=== PATIENT | female | born 1995 | race Caucasian/White ===

== ENCOUNTER 2020-04-27 13:24 | Inpatient (IN) ==
--- NOTE | 2020-04-27 14:24 | History & Physical Report ---
Date of Service April 27, 2020 Assessment & Plan Admission and Anticipated Discharge Date Admission Date: 24 yo here for ctx SCE: 6-7cm dilated, 100% effaced, 0 station PNL: Rh pos, RI, GBS neg, COVID neg Admit, labs, start IV Patient desires epidural Anticipate History of Present Illness Chief Complaint: onset of contractions this morning Primary Care Provider: Anthony Medina MD DOMO Chanel is a 24 y/o female currently at 40 1/7 WGA with an KISHAN 04/26/20 as determined by LMP who is here for labor check. Her was complicated by . [+] contractions ~5-10 minutes apart, onset at 1000 this morning; + movement; - fluid loss; - bloody show Had regular appointments with OB. Blood type: O+ Antibody screen: negative Rubella: immune (10/11/2019) VDRL/RPR: nonreactive (10/11/2019) Gonorrhea: negative (04/04/2020) Chlamydia: negative (04/04/2020) HIV: negative (10/11/2019) HbSAg: negative (10/11/2019) GBS: negative (04/04/2020) COVID-19 negative (04/11/2020) Other screens: CF: declined SMA: declined Allergies Allergy/AdvReac Type Severity Reaction Status Date / Time No Known Allergies Allergy Verified 04/25/20 11:29 Home Medications Home Medications Medication Instructions Recorded Confirmed Type prenat.vits,toni,dhd-iqqj-mkiam 1 tab PO DAILY 10/04/19 04/27/20 History Patient History Medical History Vaginal bleeding Varicella vaccination Surgical History History of oral surgery S/P tonsillectomy S/P wisdom tooth extraction Family History Grandmother (Maternal) Diabetes Mother Thyroid disease Aunt Breast cancer Spina bifida Grandfather (Maternal) Colorectal cancer Social History (Updated 10/04/19 @ 09:53 by Maine Quispe) Smoking Status: Current every day smoker Cigarettes Per Day: 1-2 cigarettes per day; Hx Alcohol Use: No Hx Substance Use: No Preferred Language: Peruvian Communication Ability: Effective Civil Engineering Draftsperson Required: No Beliefs That Will Affect Care: None marital status: Single marital status details: Tawanda Ortega (25) [phone] Current Living Situation: Parent Current Living Situation Comment: currently lives with parents current occupational status: employed Other Information That Helps Us Care for You: No Feels Safe at Home: Yes Safety Concerns: Feels Safe At This Time Assistive Devices: None Review of Systems ROS Denies fever or chills. Denies shortness of breath or cough. Denies chest pain. Denies breast pain. Denies dysuria or hematuria. Denies leg pain or leg swelling. Denies headache or changes in vision. Physical Exam Physical Exam: PE General: Alert, oriented. No acute distress. Cardiac: Regular rate and rhythm, no murmurs/rubs/gallops. Respiratory: Clear to auscultation bilaterally a/p, no wheezes/rales/rhonchi. No increased work of breathing. Symmetrical chest rise. No respiratory distress. Abdomen: Gravid. Vertex position. + heart tones. + palpable contractions. Pelvic: Dilation 6-7cm; Effacement 100%; Station [address] Lema External FHT and external uterine monitors used; Category I tracing; baseline 130, + FHT variability, toco q4-5 Lower Extremities: No lower extremity edema or swelling. No deep calf pain. Zay's negative bilaterally. Results & Data ([facility]) Vital Signs (Past 12 Hours) Vital Signs Temp Pulse Resp BP 04/27/20 13:36 36.8 C 106 H 20 107/69 04/27/20 13:30 106 H 107/69 Laboratory Results admission CBC pending Code Status & VTE Plan Code Status Full Code VTE Prophylaxis Plan VTE Prophylaxis will be ordered: No Supervising Physician Co-Signing Physician Notes Resident Physician Supervision Note: I was present with resident physician during the history and exam. I discussed the case with the resident and agree with the findings and plan as documented in the note. Any exceptions or clarifications are listed here: None Documented By: Marifer Lema, Resident Activity Tracking Resident Involvement: Resident Care Provided Care Provided: OB Delivery
[2020-04-27] MEDS ORDERED: OXYTOCIN 30 UNITS/500 ML BAG IV PRN (14:48)
[2020-04-27] MEDS: LACTATED RINGER'S 1,000 ML IV PRN ×2 (15:00→15:49)
[2020-04-27] MEDS ORDERED: ePHEDrine sulfate 50 MG/ML AMP ONE (15:11)
[2020-04-27] MEDS ORDERED: BUPIVACAINE 0.25% 30 ML VIAL ONE (15:11)
[2020-04-27] MEDS ORDERED: fentaNYL citrate 100 MCG/2 ML VIAL ONE (15:11)
[2020-04-27] MEDS ORDERED: fentaNYL 2MCG/ML ROPIVACAINE 1.25MG/ML 100 ML BAG EPI ONE (15:12)
[2020-04-27] MEDS ORDERED: NALOXONE HCL 1 MG in SODIUM CHLORIDE 0.9% 1000ML 1,000 ML IV PRN (15:16)
[2020-04-27] MEDS ORDERED: ONDANSETRON INJ 2 MG/ML 2 ML VIAL IV PRN (15:16)
[2020-04-27] MEDS ORDERED: PROMETHAZINE HCL 25 MG in SODIUM CHLORIDE 0.9% 50 ML IV PRN (15:16)
[2020-04-27] MEDS ORDERED: diphenhydrAMINE 50 MG/ML VIAL IV PRN (15:16)
[2020-04-27] MEDS ORDERED: ePHEDrine sulfate 50 MG/ML AMP IV PRN (15:16)
[2020-04-27] MEDS ORDERED: fentaNYL 2MCG/ML ROPIVACAINE 1.25MG/ML 100 ML BAG EPI PRN (15:16)
[2020-04-27] MEDS ORDERED: NALOXONE HCL 0.4 MG/1 ML VIAL/CARP IV PRN (15:16)
--- NOTE | 2020-04-27 15:17 | Anesthesiology Consultation ---
Date of Service April 27, 2020 Assessment & Plan ASA ASA3 Proposed Anesthesia Anesthesia Type: Labor Epidural Risk / Benefits Reviewed With: PT / POA / Parent / Guardian, Accepts Plan and Informed Consent Obtained History Height/Weight Height: 5 ft 5 in Weight: 73.482 kg Allergies Allergy/AdvReac Type Severity Reaction Status Date / Time No Known Allergies Allergy Verified 04/25/20 11:29 Medications Home Medications Medication Instructions Recorded Confirmed Last Taken prenat.vits,toni,pvc-udrr-eiusf 1 tab PO DAILY 10/04/19 04/27/20 04/26/20 Active Medications Generic Name Dose Route Start Last Admin Trade Name Freq PRN Reason Stop Dose Admin Lactated Ringer's 1,000 mls @ 125 mls/hr 04/27/20 14:48 04/27/20 15:50 Lr IV 04/29/20 14:47 125 mls/hr .Q8H PRN Infusion L&D Protocol Protocol Past Medical History Medical History Vaginal bleeding Varicella vaccination Exercise / Class Metabolic Activity II 4-5 Yardwork/Stairs/Walk up hill Past Family History Family History Grandmother (Maternal) Diabetes Mother Thyroid disease Aunt Breast cancer Spina bifida Grandfather (Maternal) Colorectal cancer Past Surgical History Surgical History History of oral surgery S/P tonsillectomy S/P wisdom tooth extraction Past Anesthesia History No Hx of Anesthesia Complications and No Family Hx of Anesthesia Complications History of PONV No Hx of PONV and No Hx of Motion Sickness Social History Smoking Status: Current every day smoker tobacco type: cigarettes Smoking cigarettes per day: 1-2 cigarettes per day Hx Alcohol Use: No Hx Substance Use: No Review of Systems denies fever/cough/ colds/ chest pain/ SOB/ SVETA Constitutional: no fever and no chills Respiratory: no cough and no dyspnea denies SVETA Cardiovascular: no chest pain and no dyspnea on exertion Physical Exam Vital Signs Last Vital Signs Temp 36.8 C 04/27/20 15:02 Pulse 81 04/27/20 16:00 Resp 20 04/27/20 15:02 BP 122/69 04/27/20 15:58 Pulse Ox 96 04/27/20 16:00 ENMT Mouth: + dentures; no TMJ abnormality and no dentition abnormality Thyromental Distance: > or= 3.5 Finger Breadths Mallampati Class: II Neck neck extension not limited Respiratory normal respiratory effort; no respiratory distress Auscultation: lungs clear to auscultation bilaterally Cardiovascular Rate/Rhythm: regular rate and regular rhythm Neurologic moves all extremities Psychiatric Orientation: alert and oriented x 3 Testing Laboratory Results 04/27/20 15:01
[2020-04-27 15:20] LABS: Hematocrit (blood only) 35.7 % (37-47); Hemoglobin 12.5 g/dL (12.0-16.0); Mean Corpuscular Hemoglobin 31.1 pg (25-34); Mean Corpuscular Volume 88.8 fL (80-100); Mean Platelet Volume 11.4 fL (7.4-10.4); Platelet Count 268 K/uL (130-400); RDW Coefficient of Variation 13.2 % (11.5-14.5); RDW Standard Deviation 42.7 fL (36.4-46.3); Red Blood Count 4.02 M/uL (4.2-5.4); White Blood Count 14.46 K/uL (4.8-10.8)
--- NOTE | 2020-04-27 19:25 | Labor Progress Brief Note ---
Date of Service April 27, 2020 Subjective Resting comfortably with epidural Assessment & Plan Admission and Anticipated Discharge Date Admission Date: April 27, 2020 24 y/o G1 at 40.1 wga, labor VSS Fetus cat 1 Labor - now s/p AROM Comfortable w/ epidural Augment PRN Physical Exam Genitourinary: Manual OB Exam: + cervical dilation 7 cm, + cervical effacement 90%, + station 0 and + amniotic fluid (AROM) bloody OB Exam Monitor Tracing: + external uterine monitor used (q2-4min) and + category I (130/mod/+accel/- decel) Results & Data ([facility]) Vital Signs (Past 12 Hours) Vital Signs Temp Pulse Resp BP Pulse Ox 04/27/20 19:20 89 97 04/27/20 19:15 66 99 04/27/20 19:11 97.9 F 75 18 108/61 04/27/20 19:10 70 98 04/27/20 19:05 82 98 04/27/20 19:00 86 99 04/27/20 18:57 95 H 115/74 04/27/20 18:55 69 97 04/27/20 18:50 74 99 04/27/20 18:45 84 97 04/27/20 18:41 74 104/61 04/27/20 18:40 91 H 99 04/27/20 18:35 62 97 04/27/20 18:30 62 98 04/27/20 18:26 61 18 106/60 04/27/20 18:25 66 98 04/27/20 18:21 81 88 L 04/27/20 18:20 76 93 04/27/20 18:15 69 99 04/27/20 18:12 88 122/71 04/27/20 18:10 75 100 04/27/20 18:05 70 100 04/27/20 18:00 76 18 98 04/27/20 17:55 68 98 04/27/20 17:50 74 97 04/27/20 17:45 70 98 04/27/20 17:40 84 18 94/54 L 100 04/27/20 17:39 97 H 92 04/27/20 17:35 86 99 04/27/20 17:33 90 117/78 94 04/27/20 17:30 72 97 04/27/20 17:28 66 114/69 09/24/20 17:25 78 97 20 17:23 64 111/76 20 17:20 71 98 20 17:17 64 116/73 20 17:15 67 97 20 17:12 77 18 110/70 20 17:10 74 98 04/27/20 17:08 82 129/82 04/27/20 17:05 73 100 04/27/20 17:02 85 117/79 04/27/20 17:00 90 100 20 16:57 103 H 18 118/91 04/27/20 16:55 82 99 04/27/20 16:53 82 125/93 04/27/20 16:50 91 H 100 04/27/20 16:49 79 92 04/27/20 16:47 70 18 115/74 04/27/20 16:45 90 98 04/27/20 16:42 76 116/76 04/27/20 16:40 81 100 04/27/20 16:37 70 115/73 04/27/20 16:35 68 98 04/27/20 16:32 88 18 104/76 04/27/20 16:30 93 H 97 04/27/20 16:27 90 111/77 04/27/20 16:25 87 98 04/27/20 16:22 78 110/73 20 16:20 83 98 04/27/20 16:19 95 H 138/72 20 16:15 87 96 04/27/20 16:14 78 94 04/27/20 16:10 97 H 96 04/27/20 16:07 76 20 103/66 94 04/27/20 16:05 91 H 97 04/27/20 16:00 81 96 20 15:58 104 H 20 122/69 20 15:55 98 H 95 20 15:53 106 H 18 118/77 20 15:50 92 H 98 20 15:46 92 H 18 129/77 20 15:45 88 97 20 15:44 94 H 128/87 04/27/20 15:41 104 H 18 125/76 20 15:40 91 H 99 04/27/20 15:39 85 18 119/77 04/27/20 15:37 88 18 122/73 04/27/20 15:35 78 100 04/27/20 15:34 99 H 18 118/69 89 L 04/27/20 15:32 88 20 114/69 04/27/20 15:30 91 H 20 119/71 100 04/27/20 15:27 88 90 04/27/20 15:25 87 100 04/27/20 15:22 87 92 04/27/20 15:20 85 100 04/27/20 15:15 77 100 04/27/20 15:10 97 H 100 04/27/20 15:05 107 H 99 04/27/20 15:02 98.2 F 90 20 107/68 04/27/20 13:36 98.2 F 106 H 20 107/69 04/27/20 13:30 106 H 107/69 Coding Level of Care Code None
--- NOTE | 2020-04-28 00:27 | Delivery Summary ---
Vaginal Delivery Summary Date of Service April 28, 2020 Vaginal Delivery Summary Vaginal Delivery Summary: Pre-delivery diagnoses: 24yo @ 40 2/7, spontaneous labor, smoker, +chlamydia (treated), LSIL Post-delivery diagnoses: same Procedure: spontaneous vaginal delivery Surgeon: Marifer Lema DO Complications: none Findings: Viable male . Apgars: 8/9 . Weight pending, please see nursery records Estimated blood loss: 300ml Description of delivery: The patient progressed to complete with epidural anesthesia. She then began to push. She spontaneously vaginally delivered a viable from the cephalic presentation. The head delivered in AKUA position. The anterior shoulder delivered, followed by the posterior shoulder, followed by the body. No nuchal cord. The baby was placed on mother's abdomen and a spontaneous cry was heard. Delayed cord clamping was employed, and the cord was doubly clamped and cut. Cord blood was obtained. The placenta was delivered spontaneously intact with a 3-vessel cord. The uterus and vagina were swept of clots and debris. IV pitocin was given. The uterus became firm. The cervix, vagina, and perineum were inspected and a right labial laceration was noted and repaired in a running locked stitch with 3-0 vicryl. Excellent hemostasis was observed. The mother and baby are recovering in stable and good condition in the room. Sponge, needle and instrument counts were correct x 2. Marifer Lema DO [facility] Vaginal Delivery Charge Vaginal Delivery Codes: 91167 global code for the antepartum, delivery, and post-
--- NOTE | 2020-04-28 04:54 | Obstetrical Progress Note ---
Date of Service April 28, 2020 Assessment & Plan (1) : S/p Day 1 - Feels well today. Eating well, voiding well, ambulating well. - Pain well-controlled with ibuprofen 600mg Q4H PRN. - Vital signs reviewed and WNL. - Hemoglobin reviewed. 12.5 pre- - Blood Type: O+, antibody negative, GBS negative, Rubella Immune, COVID-19 negative - Continue routine post- care: encourage ambulation, monitor and control pain with Motrin PRN, continue regular OB diet, monitor lochia - Encourage breast feeding. - After discharge, will have 6-wk follow-up with [facility] BUSINESS CONTINUITY DIRECTOR Admission and Anticipated Discharge Date Admission Date: April 27, 2020 Supervising Physician Co-Signing Physician Notes Resident Physician Supervision Note: I was present with Dr. Connolly during the history and exam. I discussed the case with the resident and agree with the findings and plan as documented in the note. Any exceptions or clarifications are listed here: PPD#1 doing well. Continue routine care. Documented By: Marifer Lema, DO Subjective HPI Kelly Chanel is a 24 y/o female who is PPD 1 spontaneous vaginal delivery at 40 2/7 weeks. She reports feeling well overall this morning. No abdominal cramping and 0/10 pain well managed on analgesics. Voiding well. Tolerating meals overnight without difficulty. Patient has been able to ambulate some. not passing gas and no bowel movement yet. Has persistent lochia with some improvement this morning. Currently bottle feeding. Review of Systems Review of Systems: ROS Denies fever or chills. Denies shortness of breath or cough. Denies chest pain. Denies breast pain. Denies dysuria. Denies leg pain or leg swelling. Physical Exam Physical Exam: PE General: Alert, oriented. No acute distress. Cardiac: Regular rate and rhythm. No murmurs. Respiratory: Clear to auscultation bilaterally a/p, no wheezes/rales/rhonchi. No increased work of breathing. Symmetrical chest rise. No respiratory distress. Abdomen: Soft, nontender, nondistended. Bowel sounds present. Uterus: Uterine fundus firm, palpable 2 cm below umbilicus. Lower Extremities: No lower extremity edema or swelling. No deep calf pain. Zay's negative bilaterally. Results & Data ([facility]) Vital Signs (Past 12 Hours) Vital Signs Temp Pulse Pulse Resp BP BP Pulse Ox 04/28/20 02:26 36.5 C 96 H 16 106/74 99 04/28/20 01:55 36.8 C 104 H 18 109/66 04/28/20 01:40 88 114/68 04/28/20 01:25 98 H 18 114/67 04/28/20 01:10 79 113/68 04/28/20 00:56 96 H 115/56 L 04/28/20 00:55 18 04/28/20 00:40 84 18 115/58 L 04/28/20 00:25 78 18 108/63 04/28/20 00:12 107 H 113/78 04/28/20 00:10 18 04/28/20 00:00 99 H 97 04/27/20 23:55 76 18 113/64 99 04/27/20 23:50 99 H 96 04/27/20 23:45 80 96 04/27/20 23:41 76 114/70 04/27/20 23:40 92 H 95 04/27/20 23:35 106 H 79 L 04/27/20 23:30 66 96 04/27/20 23:28 84 112/64 04/27/20 23:25 95 H 82 L 04/27/20 23:22 81 88 L 04/27/20 23:20 79 97 04/27/20 23:15 98 H 97 04/27/20 23:12 80 115/72 04/27/20 23:10 92 H 100 04/27/20 23:05 68 100 04/27/20 23:00 66 98 04/27/20 22:56 69 123/73 04/27/20 22:55 70 97 04/27/20 22:53 36.7 C 18 04/27/20 22:50 67 98 04/27/20 22:45 64 98 04/27/20 22:42 72 126/69 04/27/20 22:40 72 97 04/27/20 22:35 105 H 93 04/27/20 22:30 65 96 04/27/20 22:27 65 96/54 L 04/27/20 22:25 80 95 04/27/20 22:20 66 93 09/24/20 22:15 61 94 09/24/20 22:12 63 103/61 24/20 22:10 68 93 20 22:05 65 94 20 22:00 62 97 20 21:57 68 106/62 04/27/20 21:55 67 98 20 21:54 18 20 21:50 72 96 20 21:45 74 96 20 21:42 75 92/55 L 04/27/20 21:40 72 93 20 21:35 81 94 20 21:30 88 93 20 21:28 80 91/55 L 04/27/20 21:25 80 95 20 21:20 79 94 20 21:15 98 H 93 04/27/20 21:13 72 101/55 L 04/27/20 21:10 72 96 04/27/20 21:05 73 94 04/27/20 21:00 75 96 20 20:58 71 101/63 20 20:55 67 93 20 20:54 36.9 C 18 04/27/20 20:50 84 97 20 20:45 75 96 20 20:43 71 97/62 L 04/27/20 20:40 69 94 20 20:35 66 95 20 20:30 68 95 20 20:28 66 107/65 20 20:25 72 95 20 20:20 99 H 97 20 20:15 74 97 2420 20:12 67 108/62 20 20:10 87 96 20 20:05 94 H 96 20 20:00 76 97 2420 19:56 71 111/68 20 19:55 74 96 20 19:50 90 97 2420 19:45 76 97 2420 19:41 94 H 106/66 24/20 19:40 99 H 98 2420 19:35 72 97 2420 19:30 79 99 09/24/20 19:28 79 105/69 20 19:25 84 95 20 19:20 89 97 04/27/20 19:15 66 99 04/27/20 19:11 36.6 C 75 18 108/61 20 19:10 70 98 04/27/20 19:05 82 98 04/27/20 19:00 86 99 04/27/20 18:57 95 H 115/74 04/27/20 18:55 69 97 04/27/20 18:50 74 99 04/27/20 18:45 84 97 04/27/20 18:41 74 104/61 04/27/20 18:40 91 H 99 04/27/20 18:35 62 97 04/27/20 18:30 62 98 04/27/20 18:26 61 18 106/60 04/27/20 18:25 66 98 04/27/20 18:21 81 88 L 04/27/20 18:20 76 93 04/27/20 18:15 69 99 04/27/20 18:12 88 122/71 04/27/20 18:10 75 100 04/27/20 18:05 70 100 04/27/20 18:00 76 18 98 04/27/20 17:55 68 98 04/27/20 17:50 74 97 04/27/20 17:45 70 98 04/27/20 17:40 84 18 94/54 L 100 04/27/20 17:39 97 H 92 04/27/20 17:35 86 99 04/27/20 17:33 90 117/78 94 04/27/20 17:30 72 97 04/27/20 17:28 66 114/69 04/27/20 17:25 78 97 04/27/20 17:23 64 111/76 04/27/20 17:20 71 98 04/27/20 17:17 64 116/73 04/27/20 17:15 67 97 04/27/20 17:12 77 18 110/70 04/27/20 17:10 74 98 04/27/20 17:08 82 129/82 04/27/20 17:05 73 100 04/27/20 17:02 85 117/79 04/27/20 17:00 90 100 09/24/20 16:57 103 H 18 118/91 04/27/20 16:55 82 99 04/27/20 16:53 82 125/93 Resident Activity Tracking Resident Involvement: Resident Care Provided Care Provided: OB Delivery
[2020-04-28] MEDS ORDERED: ACETAMINOPHEN 325 MG TAB PO PRN (09:05)
[2020-04-28] MEDS ORDERED: HYDROCORTISONE ACETATE 25 MG SUPP PR PRN (09:05)
[2020-04-28] MEDS ORDERED: SUPERCREAM 0.870% 15 GM JAR EXT PRN (09:05)
[2020-04-28] MEDS ORDERED: OXYTOCIN 30 UNITS/500 ML BAG IV PRN (09:05)
[2020-04-28] MEDS ORDERED: DIPHTHERIA/TETANUS/PERTUSSIS 0.5 ML SYR/VIAL IM ONE (09:05)
[2020-04-28] MEDS ORDERED: IBUPROFEN 600 MG TAB PO PRN (09:05)
[2020-04-28] MEDS ORDERED: BENZOCAINE 20% AER SPR 82.5 GM CAN EXT PRN (09:05)
[2020-04-28] MEDS ORDERED: bisacodyL 10 MG SUPP PR PRN (09:05)
[2020-04-28] MEDS ORDERED: oxyCODONE/ACETAMINOPHEN 5mg/325mg TAB PO PRN (09:05)
--- NOTE | 2020-04-28 10:38 | Anesthesia Procedure Note ---
Date of Service April 28, 2020 Anesthesia Post Epidural Note Vital Signs Vital Signs: Temp Pulse Resp BP Pulse Ox 36.6 C 81 20 108/74 99 04/28/20 07:50 04/28/20 07:50 04/28/20 07:50 04/28/20 07:50 04/28/20 02:26 Pain Intensity Bilateral Abdomen: Pain Intensity: 0 Notes Mental Status: alert / awake / arousable Nausea / Vomiting: adequately controlled Pain: adequately controlled Airway Patency, RR, SpO2: stable & adequate BP & HR: stable & adequate Hydration State: stable & adequate Neuraxial Anesthesia: was administered and sensory block is resolving Anesthetic Complications: no major complications apparent and Pt Satisfied with anesthetic care Epidural: Removed without complications and With tip intact
[2020-04-28] MEDS: DOCUSATE SODIUM 100 MG CAP PO SCH (20:00)
[2020-04-29 06:35] LABS: Hematocrit (blood only) 32.7 % (37-47); Hemoglobin 11.3 g/dL (12.0-16.0)
[2020-04-29] MEDS ORDERED: PRENATAL VITAMIN 1 TAB PO SCH (08:00)
--- NOTE | 2020-04-29 08:38 | Obstetrical Progress Note ---
Date of Service April 29, 2020 Assessment & Plan (1) Encounter for care and examination after delivery: satisfactory progress discharge to home follow up in 6 weeks Day #:: 2 Subjective Ambulation: ambulating normally Passing Gas:: Yes Diet Tolerance:: regular diet Lochia:: Small Feeding Type:: bottle feeding Review of Systems All systems reviewed & are unremarkable except as noted in HPI & below Physical Exam Constitutional WD/WN, vitals as above Psychiatric A+Ox3, euthymic affect Genitourinary OB Exam Abdomen: + fundal height Fundus: + firm and + relation to umbilicus (1 below U) Results & Data ([facility]) Vital Signs (Past 12 Hours) Vital Signs Temp Pulse Resp BP Pulse Ox 04/29/20 00:00 98.1 F 104 H 16 116/76 98
[2020-04-29] MEDS: DOCUSATE SODIUM 100 MG CAP PO SCH (08:56)
[2020-04-29] MEDS ORDERED: bisacodyL 5 MG TABEC PO SCH (20:00)
== END 2020-04-29 13:43 | disposition home or self-care (01) | DRG 807 ==
LOC: OPB 13:24 → 4S1 13:25 → 4S2 04-28 02:32

== ENCOUNTER 2022-07-05 05:54 | Inpatient (IN) ==
--- NOTE | 2022-07-04 15:08 | Anesthesiology Consultation ---
Date of Service July 04, 2022 Assessment & Plan (1) Encounter for pre-operative examination: Chart Review Chart Review: entry level account manager initiated Chart review: Patient not seen at PAT/no RN phone interview at time of review. Chart review from available information. Will need to review height/weight, PMHX/PSHX, hx of anesthesia issues AM DOS.Will also need travel assessment done DOS. History Surgery Operation Date: 07/05/22 07:30 Proposed Procedures p Section in LD, (Delivery Baby through Abdominal Incision) - Rosalina Zaragoza MD, FACOG Allergies Allergy/AdvReac Type Severity Reaction Status Date / Time No Known Allergies Allergy Verified 04/29/22 10:21 Medications Home Medications Medication Instructions Recorded Confirmed Last Taken prenat.vits,otni,ffa-yzga-qjgxo 1 tab PO DAILY 02/14/22 04/29/22 Unknown Past Medical History Medical History (Updated 07/04/22 @ 16:25 by Lubna Fuentes PA-C) Chlamydia infection affecting Vaginal bleeding Varicella vaccination Vasa previa Suspected per records - last seen by Medicine 06/17/22 Past Family History Family History Grandmother (Maternal) Diabetes Mother Thyroid disease Aunt Breast cancer Spina bifida Grandfather (Maternal) Colorectal cancer Past Surgical History Surgical History History of oral surgery S/P tonsillectomy S/P wisdom tooth extraction Social History Smoking Status: Current every day smoker tobacco type: cigarettes Smoking cigarettes per day: 3-4 cigarettes per day Hx Alcohol Use: No Hx Substance Use: No
--- NOTE | 2022-07-05 06:12 | History & Physical Report ---
Date of Service July 05, 2022 Assessment & Plan (1) Vasa previa: Plan: For planned this morning. Admission and Anticipated Discharge Date Admission Date: July 05, 2022 History of Present Illness Primary Care Provider: MIKE PCP 27yo at 38w0d, last seen in our office 04/29/22 at 28wk [place]. Patient with known vasa previa and has been seen by Laura BAKER, initial appointment at 06/10/22 and last seen by them 06/17/22. They recommended that she deliver at [facility] and patient was to remain local at [facility] until that point. Unfortunately the patient left the area and multiple attempts to reach her were unsuccessful, on the part of both Laura and [facility] [place], until yesterday. The patient was counseled to come immediately to L&D for delivery but refused. She was offered this morning's first scheduled timeslot and accepted. She presents as she agreed, for primary section due to vasa previa. has been complicated by insufficient care, cigarette smoking, abnormal cervical cytology. She is Rh positive, GBS unknown, Rub imm, RPR NR, HIV NR, GTT passed, GC/CT neg at [facility]. She is CF/SMA neg and has low risk female cffDNA. She had a history of chlamydia in a prior . Allergies Allergy/AdvReac Type Severity Reaction Status Date / Time No Known Allergies Allergy Verified 07/05/22 06:10 Home Medications Medication Instructions Recorded Confirmed Type prenat.vits,toni,eaw-txjm-vslwm 1 tab PO DAILY 02/14/22 04/29/22 History Past Med/Surg History Medical History Chlamydia infection affecting Vaginal bleeding Varicella vaccination Vasa previa Suspected per records - last seen by Medicine 06/17/22 Surgical History History of oral surgery S/P tonsillectomy S/P wisdom tooth extraction Family History Grandmother (Maternal) Diabetes Mother Thyroid disease Aunt Breast cancer Spina bifida Grandfather (Maternal) Colorectal cancer Social History Smoking Status: Current every day smoker Cigarettes Per Day: 3-4 cigarettes per day; Hx Alcohol Use: No Hx Substance Use: No Preferred Language: Czech Communication Ability: Effective Cinder Worker Required: No Beliefs That Will Affect Care: None marital status: Single marital status details: Yasir (38) [phone] Current Living Situation: Family Current Living Situation Comment: lives with parents, 3 cats, mom to change litter. current occupational status: unemployed Feels Safe at Home: Yes Assistive Devices: None Physical Exam Constitutional: WD/WN, vitals as above Eyes: PERRL, conjunctivae normal, anicteric sclerae ENMT: external ear and nose normal, oropharynx normal Neck: supple Respiratory: normal respiratory effort and able to speak in complete sentences; no respiratory distress Cardiovascular: Rate/Rhythm: regular rate and regular rhythm Extremities: + pedal edema Gastrointestinal (Abdomen): Gravid / AGA, nontender Musculoskeletal: no cyanosis or clubbing, extremities motor strength 5/5 Skin: no rashes, warm and dry Psychiatric: A+Ox3, euthymic affect Genitourinary: Speculum/Bimanual Exam: uterus nontender OB Exam Monitor Tracing: + external FHT monitor used, + external uterine monitor used (irreg ctx / Q6 at times) and + category I Lymphatic: no cervical or axillary lymphadenopathy PG Care Time/CCT Total # of Minutes Spent Total Time Spent with Patient: Total time spent is greater than 50% in coordination of care (as documented) at patient's floor/unit and/or counseling patient: Coding Level of Care Code None Diagnoses Vasa previa O69.4XX0
[2022-07-05] MEDS ORDERED: LACTATED RINGER'S 1,000 ML IV SCH ×2 (06:15→09:30)
[2022-07-05] MEDS ORDERED: ONDANSETRON INJ 2 MG/ML 2 ML VIAL ONE (06:36)
[2022-07-05] MEDS ORDERED: PHENYLEPHRINE 100MCG/ML 5ML SYR ONE (06:36)
[2022-07-05] MEDS ORDERED: fentaNYL citrate 100 MCG/2 ML VIAL ONE (06:36)
[2022-07-05] MEDS ORDERED: MoRPHine SULFATE PF 1 MG/ML 10 ML AMP/VIAL ONE (06:36)
[2022-07-05] MEDS ORDERED: OXYTOCIN 10 UNITS/ML 10ML VIAL ONE (06:36)
[2022-07-05 06:47] LABS: Hematocrit (blood only) 30.1 % (34.1-44.9); Mean Corpuscular Hemoglobin 28.7 pg (25.0-34.0); Mean Corpuscular Hgb Conc 33.2 g/dL (32.0-36.0); Mean Corpuscular Volume 86.2 fL (80.0-100.0); Mean Platelet Volume 11.1 fL (9.4-12.3); Platelet Count 190 K/uL (130-400); RDW Coefficient of Variation 13.7 % (11.5-14.5); RDW Standard Deviation 42.7 fL (36.4-46.3); Red Blood Count 3.49 M/uL (3.93-5.22); White Blood Count 10.85 K/ul (4.8-10.8)
--- NOTE | 2022-07-05 06:48 | History & Physical Report ---
Date of Service July 05, 2022 Assessment & Plan Admission and Anticipated Discharge Date Admission Date: July 05, 2022 History of Present Illness Chief Complaint: vasa previa Primary Care Provider: NO PCP Patient is a 27yowf at 38 0/7 weeks who presents to labor and delivery for c/s for suspected vasa previa. this was diagnosed at her 24 week ultrasound where she had complete post previa, vessels covering os and cord insertion less than 2cm from the placental edge. at 32 weeks, post, low-lying about 1cm from edge with adjacent vessels. Had us at [facility] on 06/10 showing post placenta with edge about 2cm from the os and vessels close to the cervix. Repeat us in 1 week showed placenta post, >2cm and vessels close to the cx. MRI recommended as well as delivery at 36 weeks. The patient was then lost to f/u. Multiple attempts at contacting the patient were made. She then called the office to schedule the c/s this week. Her last visit in the office was 04/29. and Delivery Plans LGSIL on Pap in 2019 and now *rec colpo--done 02/14/22, need colpo pp approx 8wk with rubi Smoker *enc to quit Vasa Previa U/S q 4 weeks NSTs 36 weeks MFM consult (04/30/22 @ [facility]) OB Labs: Blood Type O Positive 12/24/21 Antibody Screen NEGATIVE 12/24/21 Hemoglobin 12.3 g/dL (12.0-16.0) 12/24/21 Hematocrit 36.7 % (37-47) L 12/24/21 Mean Corpuscular Volume 88.4 fL (80-100) 12/24/21 Platelet Count 320 K/uL (130-400) 12/24/21 Rubella IgG Antibody Immune (Immune) 12/24/21 Rapid Plasma Reagin Nonreactive (Nonreactive) 12/24/21 Hepatitis B Surface Antigen Neg (Neg) 10/11/19 Hepatitis B Surface Antigen. NON-REACTIVE (NON-REACTIVE) 12/24/21 Hepatitis C Antibody (EIA) NON-REACTIVE (NON-REACTIVE) 12/24/21 HIV (1&2) Ab and P24 Ag, 4th Gener Neg (Neg) 10/11/19 HIV (1&2) Ag and Ab Confirmation NON-REACTIVE (NON-REACTIVE) 12/24/21 Glucose 1 Hour 50 gm Load 108 mg/dl (70-130) 02/05/22 Maternal Serum Alpha Fetoprotein 27.4 ng/mL 02/05/22 OB Optional Labs: Chlamydia trachomatis RNA NOT DETECTED (NOT DETECTED) 12/24/21 Neisseria gonorrhoeae RNA NOT DETECTED (NOT DETECTED) 12/24/21 Alpha Fetoprotein Triple Screen SEE NOTE 02/05/22 Labs Reviewed: no labs to pull forward from prior , HK low risk cfdna - sln neg cf/sma - sln gbs neg 04/04/20 Allergies Allergy/AdvReac Type Severity Reaction Status Date / Time No Known Allergies Allergy Verified 07/05/22 06:10 Home Medications Medication Instructions Recorded Confirmed Type prenat.vits,toni,dcx-mkfw-blyjq 1 tab PO DAILY 02/14/22 07/05/22 History Patient History Medical History Chlamydia infection affecting Vaginal bleeding Varicella vaccination Vasa previa Suspected per records - last seen by Medicine 06/17/22 Surgical History History of oral surgery S/P tonsillectomy S/P wisdom tooth extraction Family History Grandmother (Maternal) Diabetes Mother Thyroid disease Aunt Breast cancer Spina bifida Grandfather (Maternal) Colorectal cancer Social History Smoking Status: Current every day smoker Cigarettes Per Day: 5; Tobacco Cessation Education Requested by Patient: No Hx Alcohol Use: No Hx Substance Use: No Preferred Language: Welsh Communication Ability: Effective Lighter Captain Required: No Beliefs That Will Affect Care: None marital status: Single marital status details: Yasir (38) [phone] Current Living Situation: Parent Current Living Situation Comment: lives with her mother and father current occupational status: unemployed Other Information That Helps Us Care for You: No Feels Safe at Home: Yes Safety Concerns: Feels Safe At This Time Assistive Devices: None OB History Past Pregnancies Del. Date GA wks Lbr Lgth wt Sex Type del Anes Place Del Prov ? Comment 04/27/20 40 7lb 14oz M Epid al [facility] Dr. Lema No Results & Data ([facility]) Vital Signs (Past 12 Hours) Vital Signs Temp Resp 07/05/22 06:12 37.1 C 18 Coding
[2022-07-05] MEDS ORDERED: CITRIC ACID/SODIUM CITRATE 15 ML UDC ONE (06:55)
[2022-07-05] MEDS ORDERED: ceFAZolin 2000MG 2,000 MG/15 ML SYR IV ONE (07:00)
[2022-07-05 07:05] LABS: Alanine Aminotransferase 12 U/L (7-52); Alkaline Phosphatase 154 U/L (34-104); Anion Gap 7 (3-11); Aspartate Aminotransferase 13 U/L (13-39); BUN Creatinine Ratio 9.8 (10-20); Bilirubin,Total 0.3 mg/dl (0.2-1.0); Blood Urea Nitrogen 5 mg/dl (6-23); Carbon Dioxide 23 mmol/L (21-32); Chloride 104 mmol/L (98-107); Creatinine Clr Calc Pharmacy 173.1 ml/min; Est GFR (African American) > 150.0 ml/min; Est GFR (Non-African American) 132.7 ml/min; Glucose 80 mg/dl (70-99(Fasting)); Potassium 3.2 mmol/L (3.5-5.1); Sodium 134 mmol/L (136-145)
[2022-07-05] MEDS ORDERED: ePHEDrine sulfate 50 MG/ML SYR ONE (08:26)
[2022-07-05] MEDS ORDERED: CARBOPROST TROMETHAMINE 250 MCG/ML AMPUL IM ONE (08:32)
[2022-07-05] MEDS ORDERED: LACTATED RINGER'S 500 ML IV PRN (08:48)
[2022-07-05] MEDS ORDERED: ePHEDrine sulfate 50 MG/ML AMP IV PRN (08:48)
[2022-07-05] MEDS ORDERED: MoRPHine SULFATE PF 1 MG/ML 10 ML AMP/VIAL INT SPINAL ONE (08:48)
[2022-07-05] MEDS ORDERED: NALBUPHINE HCL INJ 10 MG/ML AMP IV PRN (08:48)
[2022-07-05] MEDS ORDERED: NALOXONE HCL 0.4 MG/1 ML VIAL/CARP IV PRN (08:48)
[2022-07-05] MEDS ORDERED: NALOXONE HCL 1 MG in SODIUM CHLORIDE 0.9% 1000ML 1,000 ML IV PRN (08:48)
[2022-07-05] MEDS ORDERED: MoRPHine SULFATE 2 MG/ML CARP IV PRN (08:48)
[2022-07-05] MEDS ORDERED: NALOXONE HCL 0.08 MG in SYRINGE 1.8 ML IV PRN (08:48)
[2022-07-05] MEDS ORDERED: diphenhydrAMINE 50 MG/ML VIAL IV PRN (08:48)
[2022-07-05] MEDS ORDERED: ONDANSETRON INJ 2 MG/ML 2 ML VIAL IV PRN (08:48)
--- NOTE | 2022-07-05 08:51 | Operative Report ---
PG Post Operative Report Pre & Post Diagnosis Operation Date: 07/05/22 07:30 Pre-Op Diagnosis: Schedule cesesarean section for suspected vasa previa Post-Op Diagnosis: Schedule cesesarean section for suspected vasa previa for a living female child at 0813 I identified the patient and participated in the time-out.: Yes Procedure Operation Date: 07/05/22 07:30 <No data on this case meets the specified criteria> Primary low transverse Surgeon Rosalina Zaragoza MD, FACOG Multiple Spindle Router Operator Donna Estimated Blood Loss 600 Findings Consistent with Post-Op Diagnosis viable female in cephalic presentation. apgars pending. nl uterus/tubes/ovs noted on gross examination of the placenta, cord inserts close to central placenta. no vessels found in the membranes Fluids 1500cc Specimens none Drains zendejas Complications none Disposition Accompanied Patient To Recovery: Yes Disposition: L&D Indications Patient is a 27yowf with suspicion of vasa previa Description of Procedure The patient was taken to the operating room where she was identified verbally and by bracelet. She was seated on the operating table where a spinal anesthetic was placed by anesthesia. She was then placed in the supine position with a leftward tilt. A Zendejas catheter was placed sterilely. the patient was prepped and draped in a normal standard fashion. the anesthetic was tested and found to be adequate. A time-out was held, identifying correct patient, procedure, positioning and preoperative antibiotics. There were no concerns. A Pfannenstiel skin incision was made with a knife and taken down to the underlying layer of fascia with the knife and Bovie electrocautery. Bleeding was attended to with the Bovie. The fascia was incised in the midline with the knife and taken out laterally with scissors. The superior edge of the fascial incision was grasped, elevated and the underlying layer of rectus muscle was taken off bluntly and with scissors. In a similar fashion, the inferior edge of the fascial incision was grasped, elevated and the underlying layer of rectus muscle was taken off bluntly and with scissors. The muscles were bluntly in the midline. The peritoneum was entered bluntly. The incision was then stretched. The bladder blade was placed. The vesicouterine peritoneum was identified, entered with scissors and taken out laterally with scissors. The bladder flap was created digitally A hysterotomy incision was scored with a k nife and the incision was stretched superiorly and inferiorly with the nail assembly machine operator's fingers. The operators hand was placed into the incision and the head was delivered atraumatically. No nuchal cord. The nose and mouth were bulb suctioned. the rest of the infant was then delivered without difficulty. The nose and mouth were again bulb suctioned. The cord was clamped and cut and the was then handed off to the awaiting pigment making supervisor for drying and attention. Cord blood and segment were obtained. The placenta was expressed from the uterus. ON exam, the cord inserted near to centrally and no vessels noted in membranes. The uterus was exteriorized and cleared of all clot and debris with moistened laparotomy sponges. The hysterotomy incision was repaired in two layers, the first in a running locked layer, the second in an imbricating layer. Hemostasis was noted to be good. Posterior cul-de-sac was irrigated and cleared of all clot and debris. The hysterotomy incision was again inspected and found to be hemostatic. the uterus was reinteriorized. Hysterotomy incision was again inspected and found to be hemostatic. Rectus muscles were reapproximated with several interrupted stitches of 0 Vicryl. The fascia was then reapproximated with 0 Vicryl starting at the edges and meeting in the midline. The subcuticular tissues were copiously irrigated and bleeding was attended to with cautery. The skin was then closed with 4-0 Vicryl in a subcuticular fashion. All sponge lap and needle counts correct x 2 , the patient tolerated the procedure well and was taken to the recovery room in stable condition. I attest to the content of the Intraoperative Record and any orders documented therein. Any exceptions are noted below. OB Procedure Charges 08799
--- NOTE | 2022-07-05 08:52 | Anesthesiology Progress Note ---
Date of Service July 05, 2022 Anesthesia Post Procedure Vital Signs Vital Signs: Temp Pulse Resp BP Pulse Ox 07/05/22 08:49 71 96 07/05/22 08:46 72 94 07/05/22 08:45 89 100/62 07/05/22 08:44 87 94 07/05/22 06:12 37.1 C 18 Transfer of Care Handoff Completed per policy Notes Mental Status: alert / awake / arousable and participated in evaluation Patient Amnestic to Procedure: Yes Nausea / Vomiting: adequately controlled Pain: adequately controlled Airway Patency, RR, SpO2: stable & adequate BP & HR: stable & adequate Hydration State: stable & adequate Neuraxial Anesthesia: was administered and sensory block is resolving Anesthetic Complications: no major complications apparent and Pt Satisfied with anesthetic care
[2022-07-05] MEDS ORDERED: SODIUM CHLORIDE 0.9% 1000ML 1,000 ML IV SCH (09:00)
[2022-07-05] MEDS ORDERED: NO NARCOTICS OR SEDATIVES SCH (09:00)
[2022-07-05] MEDS ORDERED: DC INTRASPINAL MORPHINE SCH (09:00)
[2022-07-05] MEDS ORDERED: HYDROCORTISONE ACETATE 25 MG SUPP PR PRN (09:23)
[2022-07-05] MEDS ORDERED: SENNA 8.6 MG TAB PO PRN (09:23)
[2022-07-05] MEDS ORDERED: BENZOCAINE 20% AER SPR 82.5 GM CAN EXT PRN (09:23)
[2022-07-05] MEDS ORDERED: DIPHTHERIA/TETANUS/PERTUSSIS 0.5 ML SYR/VIAL IM ONE (09:23)
[2022-07-05] MEDS ORDERED: MAGNESIUM HYDROXIDE SUSP 30 ML UDC PO PRN (09:23)
[2022-07-05] MEDS: OXYTOCIN 20 UNITS in LACTATED RINGER'S 1,000 ML IV SCH ×2 (10:51→20:01)
[2022-07-05] MEDS: KETOROLAC 30 MG/ML VIAL IV PRN (11:44)
[2022-07-05] MEDS: SIMETHICONE 80 MG CHEW PO SCH ×2 (18:17→21:01)
[2022-07-05] MEDS: DOCUSATE SODIUM 100 MG CAP PO SCH (21:02)
[2022-07-06] MEDS: KETOROLAC 30 MG/ML VIAL IV PRN (02:31)
[2022-07-06] MEDS ORDERED: IBUPROFEN 600 MG TAB PO PRN (02:49)
[2022-07-06] MEDS ORDERED: MEPERIDINE HCL 50 MG/ML CARP IV PRN (02:49)
[2022-07-06] MEDS ORDERED: PROMETHAZINE HCL 25 MG in SODIUM CHLORIDE 0.9% 50 ML IV PRN (02:49)
[2022-07-06] MEDS ORDERED: diphenhydrAMINE 50 MG/ML VIAL IV PRN (02:49)
[2022-07-06] MEDS ORDERED: KETOROLAC 30 MG/ML VIAL IV PRN (02:49)
[2022-07-06] MEDS ORDERED: oxyCODONE/ACETAMINOPHEN 5mg/325mg TAB PO PRN (02:49)
[2022-07-06] MEDS ORDERED: ONDANSETRON INJ 2 MG/ML 2 ML VIAL IV PRN (02:49)
[2022-07-06] MEDS ORDERED: diphenhydrAMINE Capsule 25 MG CAP PO PRN (02:49)
[2022-07-06] MEDS ORDERED: CITRIC ACID/SODIUM CITRATE 15 ML UDC PO SCH (06:00)
[2022-07-06] MEDS ORDERED: ceFAZolin 2000MG 2,000 MG/15 ML SYR IV SCH (06:00)
--- NOTE | 2022-07-06 07:11 | Obstetrical Progress Note ---
Date of Service <Patrick Salazar DO - Last Filed: 07/06/22 07:49> July 06, 2022 Assessment & Plan <Patrick Salazar DO - Last Filed: 07/06/22 07:49> (1) S/P section: - Feels well today. Eating well. Has not tried to void or ambulate yet. - Pain well controlled with ibuprofen 600mg Q4H PRN and Percocet 5/325 Q4H PRN. - Routine care -- OOB, ambulation, diet progression as tolerated - After discharge will have 6 week follow-up with Dr. Zaragoza. (2) Vasa previa: <Diallo Jacobo MD, FACOG - Last Filed: 07/06/22 20:23> (1) S/P section: (2) Vasa previa: Subjective <Patrick Salazar DO - Last Filed: 07/06/22 07:49> Patient is a 27 y/o female who is POD #1 following delivery at 38 weeks for vasa previa. She reports feeling well overall this morning. Mild abdominal cramping & 0/10 pain well managed on analgesics. Has not tried to void yet. Tolerating meals overnight and able to ambulate some. Has not pass gas and or had a bowel movement. Has some persistent lochia with some improvement this morning. Currently bottle feeding. Review of Systems Denies fever, chills, sweats Denies shortness of breath, difficulty breathing, chest pain, palpitations, chest pressure. Denies breast pain. Denies dysuria. Denies headache or changes in vision. Physical Exam <Patrick Salazar DO - Last Filed: 07/06/22 07:49> General: Alert, oriented. No acute distress. Cardiac: Regular rate and rhythm, no murmurs/rubs/gallops. Respiratory: Clear to auscultation bilaterally a/p, no wheezes/rales/rhonchi. No increased work of breathing. Symmetrical chest rise. No respiratory distress. Abdomen: Soft, nontender, nondistended. Bowel sounds present. Uterus: Uterine fundus firm, palpable 2 cm below umbilicus. Lower Extremities: No lower extremity edema or swelling. No deep calf pain. Zay's negative bilaterally. Results & Data ([facility]) <Patrick Salazar DO - Last Filed: 07/06/22 07:49> Vital Signs (Past 12 Hours) Vital Signs Temp Pulse Resp BP Pulse Ox O2 Del Method 07/06/22 03:26 37.0 C 87 18 101/62 97 Room Air 07/06/22 02:14 16 96 07/06/22 01:08 16 94 07/06/22 00:09 16 94 07/05/22 23:42 36.9 C 92 H 18 116/76 94 Room Air 07/05/22 23:05 16 99 07/05/22 22:39 16 94 07/05/22 19:48 36.6 C 98 H 18 109/75 95 Room Air 07/05/22 21:15 16 97 07/05/22 20:05 16 95 07/05/22 19:48 16 95 <Diallo Jacobo MD, FACOG - Last Filed: 07/06/22 20:23> Co-Signing Physician Notes Resident Physician Supervision Note: I was present with DrRashel [Name of resident] during the history and exam. I discussed the case with the resident and agree with the findings and plan as documented in the note. Any exceptions or clarifications are listed here: [None] Documented By: Diallo Jacobo MD, FACOG Resident Activity Tracking <Patrick Salazar DO - Last Filed: 07/06/22 07:49> Resident Involvement: Resident Care Provided Care Provided: OB Delivery
[2022-07-06 07:47] LABS: Basophils # (auto) 0.04 K/uL (0-0.2); Basophils % (auto) 0.4 %; Eosinophils # (auto) 0.18 K/uL (0-0.50); Eosinophils % (auto) 1.9 %; Hematocrit (blood only) 26.6 % (34.1-44.9); Hemoglobin 8.6 g/dl (12.0-16.0); Immature Granulocytes # (auto) 0.06 K/uL (0.00-0.02); Immature Granulocytes % (auto) 0.6 %; Lymphocytes # (auto) 1.41 K/uL (1.2-3.4); Lymphocytes % (auto) 14.6 %; Mean Corpuscular Hemoglobin 28.7 pg (25.0-34.0); Mean Corpuscular Hgb Conc 32.3 g/dL (32.0-36.0); Mean Corpuscular Volume 88.7 fL (80.0-100.0); Mean Platelet Volume 11.1 fL (9.4-12.3); Monocytes # (auto) 0.69 K/uL (0.24-0.82); Monocytes % (auto) 7.1 %; Neutrophils # (auto) 7.31 K/uL (1.4-6.5); Neutrophils % (auto) 75.4 %; Platelet Count 176 K/uL (130-400); RDW Coefficient of Variation 13.7 % (11.5-14.5); RDW Standard Deviation 44.7 fL (36.4-46.3); White Blood Count 9.69 K/ul (4.8-10.8)
[2022-07-06] MEDS: SIMETHICONE 80 MG CHEW PO SCH ×4 (08:42→22:19)
[2022-07-06] MEDS: DOCUSATE SODIUM 100 MG CAP PO SCH ×2 (08:42→21:10)
[2022-07-06] MEDS: PRENATAL VITAMIN 1 TAB PO SCH (08:42)
[2022-07-06] MEDS: FERROUS SULFATE 325 MG TAB PO SCH (08:42)
[2022-07-06] MEDS ORDERED: bisacodyL 5 MG TABEC PO SCH (20:00)
[2022-07-07 07:51] LABS: Hematocrit (blood only) 29.2 % (34.1-44.9); Hemoglobin 9.5 g/dl (12.0-16.0)
--- NOTE | 2022-07-07 08:17 | Obstetrical Progress Note ---
Date of Service July 07, 2022 Assessment & Plan (1) S/P section: Plan Doing well. Routine care. Desires d/c. Instructions given. Stressed need for pp appointment. Day #:: 2 Subjective Ambulation: ambulating normally Voiding: no voiding problems Passing Gas:: Yes Diet Tolerance:: regular diet Lochia:: Small Feeding Type:: breast feeding Pain controlled, desires d/c. Physical Exam Constitutional WD/WN, vitals as above Cardiovascular Extremities: no calf tenderness and no edema Gastrointestinal (Abdomen) soft, nt, nd incision c/d/i ff/nt at u Psychiatric A+Ox3, euthymic affect Results & Data ([facility]) Vital Signs (Past 12 Hours) Vital Signs Temp Pulse Resp BP Pulse Ox O2 Del Method 07/06/22 23:14 37.1 C 98 H 18 124/75 98 Room Air 07/06/22 20:30 37 C 103 H 18 133/78
[2022-07-07] MEDS: PRENATAL VITAMIN 1 TAB PO SCH (08:55)
[2022-07-07] MEDS: DOCUSATE SODIUM 100 MG CAP PO SCH (08:55)
[2022-07-07] MEDS: FERROUS SULFATE 325 MG TAB PO SCH (08:55)
[2022-07-07] MEDS: SIMETHICONE 80 MG CHEW PO SCH (08:55)
[2022-07-07] MEDS ORDERED: bisacodyL 10 MG SUPP PR PRN (09:24)
--- NOTE | 2022-07-09 12:40 | Discharge Summary ---
Date of Service July 09, 2022 Admission HPI Per Admitting Provider 27yo at 38w0d, last seen in our office 04/29/22 at 28wk [place]. Patient with known vasa previa and has been seen by Laura BAKER, initial appointment at 06/10/22 and last seen by them 06/17/22. They recommended that she deliver at [facility] and patient was to remain local at [facility] until that point. Unfortunately the patient left the area and multiple attempts to reach her were unsuccessful, on the part of both Laura and [facility] offices, until yesterday. The patient was counseled to come immediately to L&D for delivery but refused. She was offered this morning's first scheduled timeslot and accepted. She presents as she agreed, for primary section due to vasa previa. has been complicated by insufficient care, cigarette smoking, abnormal cervical cytology. She is Rh positive, GBS unknown, Rub imm, RPR NR, HIV NR, GTT passed, GC/CT neg at B. She is CF/SMA neg and has low risk female cffDNA. She had a history of chlamydia in a prior . Discharge Data Consultations 07/05/22 06:04 Consult Anesthesiology Stat Procedures Performed Operation Date: 07/05/22 07:30 Actual Procedures p Section in LD, (Delivery Baby through Abdominal Incision) for living female child at 0813 - Rosalina Zaragoza MD, [facility] Course (1) S/P section: Plan Patient underwent a primary low transverse without incident. The placenta was examined and no evidence of vasa previa. Her /postop course was uncomplicated. She tolerated a regular diet, ambulated without dififculty, voided after the removal of her zendejas, tolerated po pain meds. She was d/c on pod#2. Her d/c H/H was 9.5/29.2. She will f/u in 6 weeks for her visit. Coding Level of Care Code None Diagnoses S/P section Z98.891
== END 2022-07-07 12:10 | disposition home or self-care (01) | DRG 788 ==
LOC: 4S1 05:54 → 4E2 11:33
DX: O09.33 Supervision of pregnancy with insufficient antenatal care, third trimester; O69.4XX0 Labor and delivery complicated by vasa previa, not applicable or unspecified; O99.334 Smoking (tobacco) complicating childbirth; F17.210 Nicotine dependence, cigarettes, uncomplicated; Z37.0 Single live birth; Z3A.38 38 weeks gestation of pregnancy